=== PATIENT | female | born 1985 | race Caucasian/White ===

== ENCOUNTER 2016-09-15 18:26 | Emergency (ER) | payer OTHER ==
[2016-09-15 18:50] VITALS: BP 151/93
[2016-09-15] MEDS ORDERED: Metoclopramide IV* 5 MG/ML 2 ML VIAL IV ONE (19:22)
[2016-09-15] MEDS ORDERED: Ketorolac INJ* 30 MG/ML 1 ML VIAL IV ONE (19:22)
[2016-09-15] MEDS ORDERED: NS 0.9% 1000 ML* 2,000 ML IV ONE (19:22)
[2016-09-15] MEDS ORDERED: Penicillin VK TAB* 250 MG PO ONE (19:25)
--- NOTE | 2016-09-15 20:37 | ED ---
Complex/Multi-Sys Presentation - HPI Summary HPI Summary: Patient presents complaining of a lump under her right arm, right upper canine tooth pain and headache. She has had lumps under her arm in the past that have turned into infections, and she has "been septic 3 times". Her tooth has been hurting for weeks after placement of a temporary cap. She has been working with her dentist to have the tooth completely pulled and a bridge put in, but her insurance has not approved the procedure yet. Her headache is a typical headache for her that has not responded to tylenol, or rest. She is under the care of a neurologist in [place] and says "they have tried everything" but she thinks her tooth is making the headache not go away. She denies fever, chills, or drainage from the tooth. No vision changes, neck pain or stiffness. No redness, pain or drainage from the bump. - History Of Current Complaint Chief Complaint: EDRashSkinAbscess Time Seen by Provider: 09/15/16 18:54 Hx Obtained From: Patient Onset/Duration: Gradual Onset Severity Currently: Moderate Severity Initially: Moderate Character: Typical Headache - Allergies/Home Medications Allergies/Adverse Reactions: Allergies Allergy/AdvReac Type Severity Reaction Status Date / Time Ibuprofen Allergy Blisters Verified 09/15/16 18:45 Tramadol Allergy See Comment Verified 09/15/16 18:45 Trazodone Allergy See Comment Verified 09/15/16 18:45 Diphenhydramine AdvReac Agitation Verified 09/15/16 18:45 [From Benadryl] Lorazepam AdvReac Anxiety Verified 09/15/16 18:45 Meperidine [From Demerol HCl] AdvReac Nausea And Verified 09/15/16 18:45 Vomiting PHENERGEN AdvReac Agitation Uncoded 09/15/16 18:45 PMH/Surg Hx/FS Hx/Imm Hx Respiratory History: Reports: Hx Asthma GI History: Reports: Hx Ulcer Musculoskeletal History: Reports: Other Musculoskeletal History - 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, neck Neurological History: Reports: Hx Headaches, Hx Migraine - Surgical History Surgery Procedure, Year, and Place: c section august 2011, pt has had 3 reconstructive surgeries to rt arm/hand Infectious Disease History: No Infectious Disease History: Reports: Hx Shingles, History Other Infectious Disease - lyme disease Denies: Traveled Outside the [place] in Last 30 Days - Family History Known Family History: Positive: Hypertension - Social History Occupation: Employed Full-time Lives: With Family Alcohol Use: None Substance Use Type: Reports: None Substance Use Comment - Amount & Last Used: percocet Smoking Status (MU): Light Every Day Tobacco Smoker Type: Cigarettes Amount Used/How Often: 5-7 cigarettes/day Length of Time of Smoking/Using Tobacco: quit 2010 Cessation Counseling: Patient Advised to Stop Review of Systems Negative: Fever, Chills, Fatigue Negative: Blurred Vision, Diplopia Positive: Dental Pain. Negative: Sore Throat, Ear Ache Negative: Chest Pain Negative: Shortness Of Breath, Cough Negative: Vomiting, Diarrhea, Nausea Positive: no symptoms reported Negative: Myalgia Positive: Rash - right armpit. Negative: Bruising Positive: Headache. Negative: Weakness, Paresthesia, Numbness All Other Systems Reviewed And Are Negative: Yes Physical Exam - Summary Physical Exam Summary: Patient is seated comfortably in the exam chair in no acute distress. Triage Information Reviewed: Yes Vital Signs On Initial Exam: Initial Vitals Temp Pulse Resp BP Pulse Ox 98.9 F 73 16 151/93 100 09/15/16 18:45 09/15/16 18:45 09/15/16 18:45 09/15/16 18:45 09/15/16 18:45 Vital Signs Reviewed: Yes Appearance: Positive: Well-Appearing, No Pain Distress, Obese Skin: Positive: Warm, Skin Color Reflects Adequate Perfusion, Dry, Tender - 1 cm area of enduration without drainage, erythema or warmth, Soft Head/Face: Positive: Normal Head/Face Inspection Eyes: Positive: EOMI, ALTAGRACIA, Conjunctiva Clear ENT: Positive: Hearing grossly normal, Pharynx normal, TMs normal Dental: Positive: Percussion Tenderness @ - right upper canine. Negative: Abscess @ Neck: Positive: Supple, Nontender, No Lymphadenopathy Respiratory/Lung Sounds: Positive: Breath Sounds Present Cardiovascular: Positive: RRR Musculoskeletal: Negative: Edema Left, Edema Right Neurological: Positive: Sensory/Motor Intact, Alert, Oriented to Person Place, Time, CN Intact II-III, NV Bundle Intact Distally, Normal Gait Psychiatric: Positive: Affect/Mood Appropriate AVPU Assessment: Alert Diagnostics - Vital Signs Vital Signs Temp Pulse Resp BP Pulse Ox 09/15/16 18:45 98.9 F 73 16 151/93 100 - Laboratory Lab Statement: Any lab studies that have been ordered have been reviewed, and results considered in the medical decision making process. Re-Evaluation - Re-Evaluation First Eval Change: Improved - Headache has improved but her tooth still aches. Complex Multi-Symp Course/Dx - Diagnoses Differential Diagnoses/HQI/PQRI: Aspiration, Closed Cranial Trauma, Sepsis, Urinary Tract Infection Provider Diagnoses: Headache, Abscess, Dental implant pain Discharge - Discharge Plan Condition: Stable Disposition: HOME Prescriptions: HYDROcodone/ACETAMIN 5-325 MG* [[place] 5-325 TAB*] 1 tab PO QID #6 tab MDD 3 Penicillin VK TAB 500 MG(NF) [Penicillin VK 500 mg Tab(NF)] 500 mg PO QID #28 tab Patient Education Materials: Toothache (ED), Migraine Headache (ED) Referrals: Alma Flanagan PA [Primary Care Provider] - Additional Instructions: Please use the antibiotics provided to help with her your tooth pain. Use the pain medication as needed. Call your dentist tomorrow to figure out pain management and treatment options. Speak with your neurologist if your symptom persist. Apply warm compresses to your arm pit and follow-up with your primary care provider if your symptoms persist. Return to the emergency department if symptoms worsen.
[2016-09-15 20:51] LABS: Hematocrit 43 % (35-47); Hemoglobin 14.8 g/dl (12.0-16.0); Mean Corpuscular HGB Conc 34 g/dl (31-36); Mean Corpuscular Hemoglobin 30 pg (27-31); Mean Corpuscular Volume 88 fL (80-97); Mean Platelet Volume 8 um3 (7.4-10.4); Red Blood Count 4.95 10^6/ul (4.0-5.4); Red Cell Distribution Width 14 % (10.5-15); White Blood Count 6.8 10^3/ul (3.5-10.8)
== END 2016-09-15 21:20 | disposition home or self-care (01) ==
LOC: ED 18:26
DX: K04.7 Periapical abscess without sinus (principal); R51 Headache; M79.601 Pain in right arm; Z96.5 Presence of tooth-root and mandibular implants
CPT/HCPCS: 36415; 85025; 96374; 96375; 99283; A9270-GY; J1885; J2765

== ENCOUNTER 2016-11-09 17:52 | Emergency (ER) | payer OTHER ==
[2016-11-09 18:09] VITALS: BP 132/93
--- NOTE | 2016-11-09 18:23 | UC ---
[facility] Dental HPI - History of Current Complaint Chief Complaint: UCDentalProblem Stated Complaint: DENTAL Time Seen by Provider: 11/09/16 18:04 Hx Obtained From: Patient Hx Last Menstrual Period: 11/07/16 Onset/Duration: Sudden Onset - Had tooth extraction 11/06. Ongoing pain., Worse Since - onset. Severity: Severe Aggravating: Nothing Alleviating: Other (see comments) - pressing on the nose, Related History: Previous Dental Care on Same Tooth - Allergies/Home Medications Allergies/Adverse Reactions: Allergies Allergy/AdvReac Type Severity Reaction Status Date / Time Ibuprofen Allergy Blisters Verified 11/09/16 17:57 Tramadol Allergy See Comment Verified 11/09/16 17:57 Trazodone Allergy See Comment Verified 11/09/16 17:57 Diphenhydramine AdvReac Agitation Verified 11/09/16 17:57 [From Benadryl] Lorazepam AdvReac Anxiety Verified 11/09/16 17:57 Meperidine [From Demerol HCl] AdvReac Nausea And Verified 11/09/16 17:57 Vomiting PHENERGEN AdvReac Agitation Uncoded 11/09/16 17:57 PMH/Surg Hx/FS Hx/Imm Hx Cardiovascular History Of: Reports: Cardiac Disorders - palpiatations Respiratory History Of: Reports: Asthma GI/ History Of: Reports: Ulcer Neurological History Of: Reports: Migraine - Surgical History Surgical History: Yes Surgery Procedure, Year, and Place: c section august 2011, pt has had 3 reconstructive surgeries to rt arm/hand. Dental - Family History Known Family History: Positive: Cardiac Disease, Hypertension, Diabetes - Social History Occupation: Employed Full-time Lives: With Family - with 5 year old. Alcohol Use: None Substance Use Type: None Substance Use Comment - Amount & Last Used: percocet Smoking Status (MU): Light Every Day Tobacco Smoker Type: Cigarettes Amount Used/How Often: 5 cigarettes/day Length of Time of Smoking/Using Tobacco: quit 2010 Have You Smoked in the Last Year: Yes Household Exposure Type: Cigarettes Cessation Counseling: Patient Advised to Stop - Immunization History Most Recent Influenza Vaccination: NONE Most Recent Tetanus Shot: UTD Most Recent Pneumonia Vaccination: NONE Review of Systems ENT: Dental Pain - with recent removal #6 All Other Systems Reviewed And Are Negative: Yes Physical Exam Triage Information Reviewed: Yes Appearance: Well-Nourished, Ill-Appearing - mild, Pain Distress - mild Vital Signs: Initial Vital Signs Temp 99.8 F 11/09/16 17:59 Pulse 93 11/09/16 17:59 Resp 18 11/09/16 17:59 BP 132/93 11/09/16 17:59 Pulse Ox 100 11/09/16 17:59 Vital Signs Reviewed: Yes Eyes: Positive: Conjunctiva Clear ENT: Positive: Pharynx normal, TMs normal Dental: Positive: Cellulitis @ - #6 at the site of removal. Open wound. Neck: Positive: Tenderness @ - right SCM and right sided anterior lymph nodes Respiratory Exam: Normal Cardiovascular Exam: Normal Musculoskeletal Exam: Normal Neurological Exam: Normal Psychological Exam: Normal Skin Exam: Normal Dental Complaint Course/Dx - Differential Dx/Diagnosis Differential Diagnosis/Dx: Dental Abscess, Peritonsillar Abcess, Post Extraction Pain Provider Diagnoses: Dental cellulitis. Post extraction pain. Discharge - Discharge Plan Condition: Stable Disposition: HOME Prescriptions: Amoxicillin/Clavulanate TAB* [Augmentin TAB 875*] 875 mg PO BID #20 tab HYDROcodone/ACETAMIN 5-325 MG* [[place] 5-325 TAB*] 1 tab PO Q6H PRN #15 tab MDD 4 PRN Reason: Pain (Dental) Patient Education Materials: Dental Abscess (ED), Toothache (ED), Amoxicillin/ Clavulanate Potassium (By mouth), Hydrocodone/Acetaminophen (By mouth) Referrals: Alma Flanagan PA [Primary Care Provider] - Additional Instructions: Follow up with the dentist this week Images Dental: 1 - open wound with surrounding redness, tenderness and swelling
[2016-11-09] MEDS ORDERED: Amoxicillin/Clavulanate TAB* 875 MG PO ONE (18:26)
[2016-11-09] MEDS ORDERED: HYDROcodone/ACETAMIN 5-325 MG* 1 TAB PO ONE (18:26)
== END 2016-11-09 18:45 | disposition home or self-care (01) ==
LOC: UCCORT 17:52
DX: K12.2 Cellulitis and abscess of mouth (principal); K08.409 Partial loss of teeth, unspecified cause, unspecified class; R00.2 Palpitations; J45.909 Unspecified asthma, uncomplicated; G43.909 Migraine, unspecified, not intractable, without status migrainosus; Z88.6 Allergy status to analgesic agent; Z88.5 Allergy status to narcotic agent; Z88.8 Allergy status to other drugs, medicaments and biological substances; F17.210 Nicotine dependence, cigarettes, uncomplicated
CPT/HCPCS: 99212; A9270-GY; G0463

== ENCOUNTER 2017-02-15 19:11 | Emergency (ER) | payer OTHER ==
[2017-02-15] MEDS ORDERED: NS 0.9% 1000 ML* 2,000 ML IV ONE (19:46)
[2017-02-15] MEDS ORDERED: Ondansetron INJ* 2 MG/ML VIAL IV ONE (19:46)
[2017-02-15 19:49] VITALS: BP 136/92
--- NOTE | 2017-02-15 20:28 | RAD ---
INDICATION: Dysfunctional uterine bleeding COMPARISON: Pelvic sonogram June 01, 2015 TECHNIQUE: Longitudinal and transverse transabdominal scans of the pelvis were obtained. FINDINGS: Uterus: The uterus is normal in size. There are no focal masses. The uterus measures 8.4 x 3.4 x 4.8 cm. Endometrial thickness: The endometrial thickness is measured at 0.6 cm. . Free fluid: There is no significant free fluid . Ovaries: The ovaries are normal in size. The right ovary measures 2.8 x 1.9 x 2.5 cm. The left ovary measures 3.1 x 1.9 x 2.5 cm. There are small bilateral follicles.. Doppler interrogation demonstrates flow to each ovary. Other: None IMPRESSION: NORMAL STUDY.
[2017-02-15 20:54] LABS: Hematocrit 43 % (35-47); Hemoglobin 14.7 g/dl (12.0-16.0); Mean Corpuscular HGB Conc 34 g/dl (31-36); Mean Corpuscular Hemoglobin 30 pg (27-31); Mean Corpuscular Volume 87 fL (80-97); Mean Platelet Volume 8 um3 (7.4-10.4); Red Blood Count 4.91 10^6/ul (4.0-5.4); Red Cell Distribution Width 14 % (10.5-15); White Blood Count 7.2 10^3/ul (3.5-10.8)
[2017-02-15 21:14] LABS: ALT 17 U/L (7-52); AST 12 U/L (13-39); Albumin 4.4 g/dL (3.2-5.2); Alkaline Phosphatase 53 U/L (34-104); Anion Gap 7 mmol/L (2-11); BUN/Creatinine Ratio 17.5 (8-20); Blood Urea Nitrogen 10 mg/dL (6-24); CO2 Carbon Dioxide 23 mmol/L (22-32); Calcium 9.4 mg/dL (8.6-10.3); Chloride 105 mmol/L (101-111); EGFR African American 157.1 (>60); EGFR Non-African American 122.2 (>60); Globulin 2.8 g/dL (2-4); Glucose 85 mg/dL (70-100); Potassium 3.4 mmol/L (3.5-5.0); Sodium 135 mmol/L (133-145); Total Protein 7.2 g/dL (6.4-8.9)
[2017-02-15] MEDS ORDERED: Meclizine TAB* 12.5 MG PO ONE (21:56)
--- NOTE | 2017-02-16 05:17 | ED ---
Avni Logan Rebecca, scribed for Dyllan Bernstein MD on 02/15/17 at 1957 . GI/ HPI - HPI Summary HPI Summary: Pt is a 31 y/o F who presents to ED c/o heavy vaginal bleeding. Pt reports that her period began on February 09 and that typically it is light and lasts 3-4 days. However, it has continued since onset and this morning the blood was darker than usual and contained multiple clots "larger than a half dollar." Pt uses the Diva cup and has filled it 3-4 times today. Additionally c/o dizziness , N/V, R-sided abd pain and R lumbar back pain. Associated pain is currently moderate, ranked 6/10. Denies dysuria. No prior similar episodes. Does not take ASA and is not on oral contraceptives. No chance of , per pt. SR. MANAGER is Dr. Mcdonald with whom she has an appointment in 9 days. PMHx R ovarian cysts , uterine fibroids, migraines. - History of Current Complaint Chief Complaint: EDGeneral Time Seen by Provider: 02/15/17 19:28 Stated Complaint: GENERAL ILLNESS/MIGRAINE/VAG BLEED Hx Obtained From: Patient Hx Last Menstrual Period: 11/07/16 Onset/Duration: Still Present Current Severity: Moderate - 6/10 Vaginal Bleeding Description: Dark Red, Clots Pain Intensity: 6 Location of Pain: RLQ - R-sided abd pain Associated Signs and Symptoms: Positive: Nausea, Vomiting Additional Signs & Symptoms: Positive: Vaginal Bleeding Aggravating Factor(s): Nothing Alleviating Factor(s): Nothing - Allergy/Home Medications Allergies/Adverse Reactions: Allergies Allergy/AdvReac Type Severity Reaction Status Date / Time Ibuprofen Allergy Blisters Verified 11/09/16 17:57 Tramadol Allergy See Comment Verified 11/09/16 17:57 Trazodone Allergy See Comment Verified 11/09/16 17:57 Diphenhydramine AdvReac Agitation Verified 11/09/16 17:57 [From Benadryl] Lorazepam AdvReac Anxiety Verified 11/09/16 17:57 Meperidine [From Demerol HCl] AdvReac Nausea And Verified 11/09/16 17:57 Vomiting PHENERGEN AdvReac Agitation Uncoded 11/09/16 17:57 PMH/Surg Hx/FS Hx/Imm Hx Respiratory History: Reports: Hx Asthma GI History: Reports: Hx Ulcer History: Reports: Other Problems/Disorders - Ovarian cysts and uterine fibroids Musculoskeletal History: Reports: Other Musculoskeletal History - 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 Dental Infectious Disease History: Reports: Hx Shingles, History Other Infectious Disease - lyme disease Denies: Traveled Outside the [place] in Last 30 Days - Family History Known Family History: Positive: Cardiac Disease, Hypertension, Diabetes - Social History Alcohol Use: None Substance Use Type: Reports: None Substance Use Comment - Amount & Last Used: percocet Smoking Status (MU): Light Every Day Tobacco Smoker Type: Cigarettes Amount Used/How Often: 5 cigarettes/day Length of Time of Smoking/Using Tobacco: quit 2010 Have You Smoked in the Last Year: Yes Review of Systems Positive: Abdominal Pain - R-sided abd pain, Vomiting, Nausea Positive: other - Heavy vaginal bleeding. Negative: dysuria Positive: Arthralgia - R Lumbar back pain Neurological: Other - Dizziness All Other Systems Reviewed And Are Negative: Yes Physical Exam - Summary Physical Exam Summary: The patient is well-nourished in no acute distress and in no acute pain. The skin is warm and dry and skin color reflects adequate perfusion. HEENT: The head is normocephalic and atraumatic. The pupils are equal and reactive. The conjunctivae are clear and without drainage. Nares are patent and without drainage. Mouth reveals moist mucous membranes and the throat is without erythema and exudate. The external ears are intact. The ear canals are patent and without drainage. The tympanic membranes are intact. Neck is supple with full range of motion and non-tender. There are no carotid bruits. There is no neck vein distension. Respiratory: Chest is non-tender. Lungs are clear to auscultation and breath sounds are symmetrical and equal. Cardiovascular: Hear is regular rate and rhythm. There is no murmur or rub auscultated. There is no peripheral edema and pulses are symmetrical and equal. Abdomen: The abdomen is obese and soft with questionable R ovary tenderness. There are normal bowel sounds heard in all four quadrants and there is no organomegaly palpated. Musculoskeletal: No CVA tenderness bilaterally. Extremities are non-tender with full range of motion. There is good capillary refill. There is no peripheral edema or calf tenderness elicited. Neurological: Patient is alert and oriented to person, place and time. The patient has symmetrical motor strength in all four extremities. Cranial nerves are grossly intact. Deep tendon reflexes are symmetrical and equal in all four extremities. Psychiatric: The patient has an appropriate affect and does not exhibit any anxiety or depression. Triage Information Reviewed: Yes Vital Signs On Initial Exam: Initial Vitals Temp Pulse Resp BP Pulse Ox 98.9 F 78 20 131/92 99 02/15/17 19:18 02/15/17 19:18 02/15/17 19:18 02/15/17 19:18 02/15/17 19:18 Vital Signs Reviewed: Yes Diagnostics - Vital Signs Vital Signs Temp Pulse Resp BP Pulse Ox 02/15/17 19:18 98.9 F 78 20 131/92 99 - Laboratory Lab Results: Lab Results 02/15/17 02/15/17 02/15/17 Range/Units 20:35 20:35 20:35 WBC 7.2 (3.5-10.8) 10^3/ul RBC 4.91 (4.0-5.4) 10^6/ul Hgb 14.7 (12.0-16.0) g/dl Hct 43 (35-47) % MCV 87 (80-97) fL MCH 30 (27-31) pg MCHC 34 (31-36) g/dl RDW 14 (10.5-15) % Plt Count 251 (150-450) 10^3/ul MPV 8 (7.4-10.4) um3 Neut % (Auto) 48.2 (38-83) % Lymph % (Auto) 45.1 (25-47) % Sampson % (Auto) 4.0 (1-9) % Eos % (Auto) 2.3 (0-6) % Baso % (Auto) 0.4 (0-2) % Absolute Neuts (auto) 3.5 (1.5-7.7) 10^3/ul Absolute Lymphs (auto) 3.3 (1.0-4.8) 10^3/ul Absolute Monos (auto) 0.3 (0-0.8) 10^3/ul Absolute Eos (auto) 0.2 (0-0.6) 10^3/ul Absolute Basos (auto) 0 (0-0.2) 10^3/ul Absolute Nucleated RBC 0 10^3/ul Nucleated RBC % 0 INR (Anticoag Therapy) 1.03 (0.89-1.11) APTT 30.3 (26.0-36.3) seconds Sodium 135 (133-145) mmol/L Potassium 3.4 L (3.5-5.0) mmol/L Chloride 105 (101-111) mmol/L Carbon Dioxide 23 (22-32) mmol/L Anion Gap 7 (2-11) mmol/L BUN 10 (6-24) mg/dL Creatinine 0.57 (0.51-0.95) mg/dL Est GFR ( Amer) 157.1 (>60) Est GFR (Non-Af Amer) 122.2 (>60) BUN/Creatinine Ratio 17.5 (8-20) Glucose 85 (70-100) mg/dL Lactic Acid (0.5-2.0) mmol/L Calcium 9.4 (8.6-10.3) mg/dL Total Bilirubin 0.50 (0.2-1.0) mg/dL AST 12 L (13-39) U/L ALT 17 (7-52) U/L Alkaline Phosphatase 53 (34-104) U/L Total Protein 7.2 (6.4-8.9) g/dL Albumin 4.4 (3.2-5.2) g/dL Globulin 2.8 (2-4) g/dL Albumin/Globulin Ratio 1.6 (1-3) Beta HCG, Quant < 0.60 mIU/mL 02/15/17 Range/Units 20:35 WBC (3.5-10.8) 10^3/ul RBC (4.0-5.4) 10^6/ul Hgb (12.0-16.0) g/dl Hct (35-47) % MCV (80-97) fL MCH (27-31) pg MCHC (31-36) g/dl RDW (10.5-15) % Plt Count (150-450) 10^3/ul MPV (7.4-10.4) um3 Neut % (Auto) (38-83) % Lymph % (Auto) (25-47) % Sampson % (Auto) (1-9) % Eos % (Auto) (0-6) % Baso % (Auto) (0-2) % Absolute Neuts (auto) (1.5-7.7) 10^3/ul Absolute Lymphs (auto) (1.0-4.8) 10^3/ul Absolute Monos (auto) (0-0.8) 10^3/ul Absolute Eos (auto) (0-0.6) 10^3/ul Absolute Basos (auto) (0-0.2) 10^3/ul Absolute Nucleated RBC 10^3/ul Nucleated RBC % INR (Anticoag Therapy) (0.89-1.11) APTT (26.0-36.3) seconds Sodium (133-145) mmol/L Potassium (3.5-5.0) mmol/L Chloride (101-111) mmol/L Carbon Dioxide (22-32) mmol/L Anion Gap (2-11) mmol/L BUN (6-24) mg/dL Creatinine (0.51-0.95) mg/dL Est GFR ( Amer) (>60) Est GFR (Non-Af Amer) (>60) BUN/Creatinine Ratio (8-20) Glucose (70-100) mg/dL Lactic Acid 0.6 (0.5-2.0) mmol/L Calcium (8.6-10.3) mg/dL Total Bilirubin (0.2-1.0) mg/dL AST (13-39) U/L ALT (7-52) U/L Alkaline Phosphatase (34-104) U/L Total Protein (6.4-8.9) g/dL Albumin (3.2-5.2) g/dL Globulin (2-4) g/dL Albumin/Globulin Ratio (1-3) Beta HCG, Quant mIU/mL Result Diagrams: 02/15/17 20:35 02/15/17 20:35 Lab Statement: Any lab studies that have been ordered have been reviewed, and results considered in the medical decision making process. - Ultrasound No standard instances Ultrasound Interpretation: No Acute Changes - PELVIS US: NORMAL STUDY. Ultrasound Interpretation Completed By: Radiologist Re-Evaluation - Re-Evaluation First Eval Re-Evaluation Time: 21:54 Change: Unchanged Comment: Reviewed labs with the pt. She continues to be dizzy and when asked to described sx, it sounds like vertigo. She also has some ataxia. Will give Meclizine to see if sx improve. Second Eval Re-Evaluation Time: 22:36 Change: Unchanged Comment: Pt is unhappy with her care. She felt that we were not compassionate enough with her and did not spend enough time with her. GIGU Course/Dx - Course Assessment/Plan: Pt is a 31 y/o F who presents to ED c/o heavy vaginal bleeding. Pt reports that her period began on February 09 and that typically it is light and lasts 3-4 days. However, it has continued since onset and this morning the blood was darker than usual and contained multiple clots "larger than a half dollar." Pt uses the Diva cup and has filled it 3-4 times today. Additionally c/o dizziness, N/V, R-sided abd pain and R lumbar back pain. Associated pain is currently moderate, ranked 6/10. Denies dysuria. No prior similar episodes. Does not take ASA and is not on oral contraceptives. No chance of , per pt. SR. MANAGER is Dr. Mcdonald with whom she has an appointment in 9 days. PMHx R ovarian cysts, uterine fibroids, migraines. Pelvic US reveals no acute findings. In the ED course, pt was administered Zofran, Meclizine and fluids. She will be D/C to home with Dx of dizziness and nausea with a follow up with her PCP. She understands and agrees. - Diagnoses Differential Diagnoses - Female: Other - vaginal bleding, dizziness Provider Diagnoses: Dizziness, Nausea Discharge - Discharge Plan Condition: Stable Disposition: HOME Patient Education Materials: Dizziness (ED) Referrals: Alma Flanagan PA [Primary Care Provider] - 3 Days The documentation as recorded by the Avni woods Rebecca accurately reflects the service I personally performed and the decisions made by me, Dyllan Bernstein MD.
== END 2017-02-15 22:53 | disposition home or self-care (01) ==
LOC: ED 19:11
DX: R42 Dizziness and giddiness (principal); R11.2 Nausea with vomiting, unspecified; M54.5 Low back pain; N93.9 Abnormal uterine and vaginal bleeding, unspecified; Z32.02 Encounter for pregnancy test, result negative; J45.909 Unspecified asthma, uncomplicated; G43.909 Migraine, unspecified, not intractable, without status migrainosus; Z88.6 Allergy status to analgesic agent; Z88.5 Allergy status to narcotic agent
CPT/HCPCS: 36415; 76856; 80053; 83605; 84702; 85025; 85610; 85730; 96361; 96374; 99282; A9270-GY; J2405

== ENCOUNTER 2017-02-23 23:59 | Emergency (ER) | payer OTHER ==
[2017-02-24] MEDS ORDERED: NS 0.9% 1000 ML* 2,000 ML IV ONE (00:14)
[2017-02-24] MEDS ORDERED: Ondansetron INJ* 2 MG/ML VIAL IV ONE ×2 (00:14→01:14)
[2017-02-24] MEDS ORDERED: Morphine INJ* 4 MG/ML 1 ML SYRINGE IV ONE ×2 (00:14→01:12)
[2017-02-24 00:45] LABS: Hematocrit 43 % (35-47); Hemoglobin 14.9 g/dl (12.0-16.0); Mean Corpuscular HGB Conc 35 g/dl (31-36); Mean Corpuscular Hemoglobin 31 pg (27-31); Mean Corpuscular Volume 87 fL (80-97); Mean Platelet Volume 8 um3 (7.4-10.4); Red Blood Count 4.87 10^6/ul (4.0-5.4); Red Cell Distribution Width 14 % (10.5-15); White Blood Count 10.6 10^3/ul (3.5-10.8)
[2017-02-24 00:52] LABS: Urine Bacteria 2+ (Absent); Urine Bilirubin Negative (Negative); Urine Glucose Negative (Negative); Urine Nitrite Negative (Negative)
[2017-02-24 01:05] LABS: ALT 19 U/L (7-52); AST 16 U/L (13-39); Albumin 4.5 g/dL (3.2-5.2); Alkaline Phosphatase 51 U/L (34-104); Anion Gap 4 mmol/L (2-11); BUN/Creatinine Ratio 18.9 (8-20); Blood Urea Nitrogen 10 mg/dL (6-24); CO2 Carbon Dioxide 28 mmol/L (22-32); Calcium 9.6 mg/dL (8.6-10.3); Chloride 102 mmol/L (101-111); EGFR African American 170.9 (>60); EGFR Non-African American 132.9 (>60); Globulin 2.8 g/dL (2-4); Glucose 114 mg/dL (70-100); Lipase 17 U/L (11.0-82.0); Potassium 3.5 mmol/L (3.5-5.0); Sodium 134 mmol/L (133-145); Total Protein 7.3 g/dL (6.4-8.9)
[2017-02-24] MEDS ORDERED: Levofloxacin TAB* 500 MG PO ONE (02:55)
[2017-02-24 03:16] VITALS: BP 122/74
--- NOTE | 2017-02-24 06:11 | ED ---
Avni Logan Rebecca, scribed for Donta Kramer on 02/24/17 at 0019 . Back Pain - HPI Summary HPI Summary: Pt is a 31 y/o F BIBA who presents to ED c/o L flank pain. Pain began earlier today while at work, though it worsened tonight. Pain is currently severe, ranked 9/10. Sx aggravated and alleviated by nothing. Additionally c/o N/V. Denies hematuria and fever. No PMHx kidney stones. PMHx septicemia from 2 ureter tubes in the R kidney. No prior issues with the L kidney. - History of Current Complaint Chief Complaint: EDFlankPain Stated Complaint: BACK PAIN Time Seen by Provider: 02/24/17 00:08 Hx Obtained From: Patient Hx Last Menstrual Period: 11/07/16 Onset/Duration: Still Present, Worse Since - Tonight Back Pain Location: Is Discrete @ - L flank Severity Currently: Severe Pain Intensity: 9 Pain Scale Used: 0-10 Numeric Aggravating Symptom(s): Nothing Alleviating Symptom(s): Nothing Associated Signs And Symptoms: Positive: Other - N/V. Negative: Fever - Allergies/Home Medications Allergies/Adverse Reactions: Allergies Allergy/AdvReac Type Severity Reaction Status Date / Time Ibuprofen Allergy Blisters Verified 02/24/17 00:06 Tramadol Allergy See Comment Verified 02/24/17 00:06 Trazodone Allergy See Comment Verified 02/24/17 00:06 Diphenhydramine AdvReac Agitation Verified 02/24/17 00:06 [From Benadryl] Lorazepam AdvReac Anxiety Verified 02/24/17 00:06 Meperidine [From Demerol HCl] AdvReac Nausea And Verified 02/24/17 00:06 Vomiting PHENERGEN AdvReac Agitation Uncoded 02/24/17 00:06 PMH/Surg Hx/FS Hx/Imm Hx Respiratory History: Reports: Hx Asthma GI History: Reports: Hx Ulcer History: Reports: Other Problems/Disorders - Ovarian cysts and uterine fibroids Musculoskeletal History: Reports: Other Musculoskeletal History - 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 Dental Infectious Disease History: No Infectious Disease History: Reports: Hx Shingles, History Other Infectious Disease - lyme disease Denies: Traveled Outside the [place] in Last 30 Days - Family History Known Family History: Positive: Cardiac Disease, Hypertension, Diabetes - Social History Alcohol Use: None Substance Use Type: Reports: None Substance Use Comment - Amount & Last Used: percocet Smoking Status (MU): Light Every Day Tobacco Smoker Type: Cigarettes Amount Used/How Often: 5 cigarettes/day Length of Time of Smoking/Using Tobacco: quit 2010 Have You Smoked in the Last Year: Yes Review of Systems Negative: Fever Positive: Vomiting, Nausea Negative: hematuria Positive: Other - L flank pain All Other Systems Reviewed And Are Negative: Yes Physical Exam - Summary Physical Exam Summary: Appearance: Well appearing, no pain distress Skin: warm, dry, reflects adequate perfusion Head/face: normal Eyes: EOMI, ALTAGRACIA ENT: normal Neck: supple, nontender Respiratory: CTA, breath sounds present Cardiovascular: RRR, pulses symmetrical Abdomen: nontender, soft Bowel: present Musculoskeletal: L flank tenderness, strength/ROM intact Neuro: normal, sensory motor intact, A&Ox3 Triage Information Reviewed: Yes Vital Signs On Initial Exam: Initial Vitals Temp Pulse Resp BP Pulse Ox 98.2 F 85 20 127/97 98 02/24/17 00:04 02/24/17 00:04 02/24/17 00:04 02/24/17 00:04 02/24/17 00:04 Vital Signs Reviewed: Yes - [place] Coma Scale Coma Scale Total: 15 Diagnostics - Vital Signs Vital Signs Temp Pulse Resp BP Pulse Ox 02/24/17 00:09 98.2 F 85 20 127/97 98 02/24/17 00:04 98.2 F 85 20 127/97 98 - Laboratory Result Diagrams: 02/24/17 00:30 02/24/17 00:30 Lab Statement: Any lab studies that have been ordered have been reviewed, and results considered in the medical decision making process. - CT CT Abd/Pel CT Interpretation: Positive (See Comments) - Questionable minimal left hydronephrosis may be secondary to a recently passed stone. Punctate intraparenchymal left renal stone. No other localizing findings for acute pathology. ED physician reviewed this radiology report and agrees. CT Interpretation Completed By: Radiologist Back Pain Course/Dx - Course Assessment/Plan: Pt is a 31 y/o F BIBA who presents to ED c/o L flank pain. Pain began earlier today while at work, though it worsened tonight. Pain is currently severe, ranked 9/10. Sx aggravated and alleviated by nothing. Additionally c/o N/V. Denies hematuria and fever. No PMHx kidney stones. PMHx septicemia from 2 ureter tubes in the R kidney. No prior issues with the L kidney. CT Abd/Pel reveals "Questionable minimal left hydronephrosis may be secondary to a recently passed stone. Punctate intraparenchymal left renal stone. No other localizing findings for acute pathology." In the ED course, pt was administered Levaquin, morphine and zofran. Pt will be D/C to home with Dx of UTI and flank pain with Rx for motrin and levaquin and a follow up with her PCP. She understands and agrees. Elevated BP noted and advised to f/u with PCP. - Diagnoses Provider Diagnoses: UTI (urinary tract infection), Flank pain Discharge - Discharge Plan Condition: Stable Disposition: HOME Prescriptions: Levofloxacin TAB* [Levaquin TAB*] 500 mg PO DAILY #10 tab Ondansetron ODT TAB* [Zofran 4 MG Odt TAB*] 4 mg PO Q8H PRN #20 tab.odt MDD 3 PRN Reason: Vomiting Patient Education Materials: Urinary Tract Infection in Women (ED), Flank Pain (ED) Referrals: Alma Flanagan PA [Primary Care Provider] - 3 Days The documentation as recorded by the Avni woods Rebecca accurately reflects the service I personally performed and the decisions made by , Donta Kramer.
--- NOTE | 2017-02-24 08:08 | RAD ---
CLINICAL HISTORY: Left flank pain COMPARISON: December 28, 2012 TECHNIQUE: Multiple contiguous axial CT scans were obtained of the abdomen and pelvis, without intravenous contrast enhancement. Coronal and sagittal multiplanar reformations are submitted for review. Oral contrast was not administered. FINDINGS: LUNG BASES: The lung bases are clear. LIVER: The liver is normal in shape, size, contour, and attenuation. BILE DUCTS: There is no intrahepatic or extrahepatic biliary dilatation. GALLBLADDER: The gallbladder is normal, without pericholecystic inflammatory change. PANCREAS: The pancreas is normal, without mass or ductal dilatation. SPLEEN: Normal in size and appearance. UPPER GI TRACT: Evaluation of the gastrointestinal tract is limited by incomplete gastric distention. The upper GI tract is unremarkable. SMALL BOWEL AND MESENTERY: The small bowel is normal in contour, course, and caliber. There is no obstruction or dilatation. COLON: The colon is normal in contour, course, caliber. There is no pericolonic inflammatory change. There is a tubular, vermiform, hollow viscus that is blind ending, and originates from the cecum, consistent with a normal appendix. There is no periappendiceal inflammatory change. This is best seen on axial image 77 through 109 ADRENALS: Normal bilaterally. KIDNEYS: There is a punctate, 0.1 cm, left renal calyceal stone. There is mild fullness of the left renal pelvis and ureter. There is no stephania hydronephrosis. BLADDER: The bladder is smooth in contour. PELVIC ORGANS: The uterus and adnexa are grossly normal for technique. AORTA: The aorta is normal. IVC: Unremarkable LYMPH NODES: There is no lymphadenopathy by size criteria. ABDOMINAL WALL: There is no evidence for abdominal wall hernia. BONES AND SOFT TISSUES: Unremarkable OTHER: None IMPRESSION: PUNCTATE LEFT RENAL CALYCEAL STONE. THERE IS MILD FULLNESS OF THE LEFT RENAL PELVIS AND URETER WITHOUT STEPHANIA HYDRONEPHROSIS.
== END 2017-02-24 03:15 | disposition home or self-care (01) ==
LOC: ED 23:59
DX: N39.0 Urinary tract infection, site not specified (principal); R10.84 Generalized abdominal pain; R11.2 Nausea with vomiting, unspecified; F17.210 Nicotine dependence, cigarettes, uncomplicated
CPT/HCPCS: 36415; 74176; 80053; 81003; 81015; 83690; 84702; 85025; 85610; 85730; 87077; 87086; 87186; 96374; 96375; 99283; J2270; J2405

== ENCOUNTER 2017-12-21 16:25 | Emergency (ER) | payer OTHER ==
[2017-12-21 17:45] VITALS: BP 135/96
--- NOTE | 2017-12-21 20:12 | UC ---
Nel Logan Elizabeth, scribed for Sukumar Simeon MD on 12/21/17 at 1807 . Skin Complaint HPI - HPI Summary HPI Summary: This patient is a 32 year old F presenting to [facility] with a chief complaint of rash/lesion to the face and chest to the face since a 2 days ago. The patient says that she thinks she has another staph infection. The patient rates the pain 7/10 in severity. Symptoms aggravated by nothing. Symptoms alleviated by nothing. Patient reports swelling to her face, pain in her kidneys, pus-like discharge from the lesion on her face, and aching in her neck and jaw. The patient notes that she has a dislocated jaw and is planning to have surgery to correct it. The patient also reports that she has been hot-packing the lesion on her face so that it does not spread. Patient denies dental pain. The patient has a hx of MRSA and neurological problems. - History of Current Complaint Chief Complaint: UCSkin Time Seen by Provider: 12/21/17 17:52 Stated Complaint: RASH Hx Obtained From: Patient Hx Last Menstrual Period: now Onset/Duration: Sudden Onset, Lasting Days - 2 days, Still Present Skin Exposure Onset/Duration: Days Ago - 2 days Timing: Constant Onset Severity: Moderate Current Severity: Moderate Pain Intensity: 7 Pain Scale Used: 0-10 Numeric Location: Face, Other - chest Character: Swelling, Redness, Raised, Painful Aggravating Factor(s): Nothing Alleviating Factor(s): Nothing Associated Signs & Symptoms: Positive: Drainage - from lesion on face Related History: Other: - hx of staph infections and MRSA - Allergy/Home Medications Allergies/Adverse Reactions: Allergies Allergy/AdvReac Type Severity Reaction Status Date / Time diphenhydramine Allergy Agitation Verified 12/21/17 17:45 [From Benadryl] lorazepam Allergy Anxiety Verified 12/21/17 17:45 meperidine [From Demerol] Allergy Nausea And Verified 12/21/17 17:45 Vomiting NSAIDS (Non-Steroidal Allergy Hives Verified 12/21/17 17:46 Anti-Inflamma trazodone Allergy See Comment Verified 12/21/17 17:45 PHENERGEN AdvReac Agitation Uncoded 12/21/17 17:45 Review of Systems Constitutional: Negative - negative fever Skin: Rash - lesions on face and chest ENT: Negative - negative epistaxis Musculoskeletal: Arthralgia - jaw pain, neck pain, Edema - swelling in face All Other Systems Reviewed And Are Negative: Yes PMH/Surg Hx/FS Hx/Imm Hx - Additional Past Medical History Additional PMH: hx of staph infections, MRSA, dislocated jaw GI/ History: Renal Disease - Surgical History Surgical History: Yes Surgery Procedure, Year, and Place: august 2011, pt has had 3 reconstructive surgeries to rt arm/hand. Dental - Family History Known Family History: Positive: Cardiac Disease, Hypertension, Diabetes - Social History Alcohol Use: None Substance Use Type: None Substance Use Comment - Amount & Last Used: percocet Smoking Status (MU): Light Every Day Tobacco Smoker Type: Cigarettes Amount Used/How Often: 5 cigarettes/day Length of Time of Smoking/Using Tobacco: quit 2010 Have You Smoked in the Last Year: Yes Household Exposure Type: Cigarettes - Immunization History Most Recent Influenza Vaccination: NONE Most Recent Tetanus Shot: UTD Most Recent Pneumonia Vaccination: NONE Physical Exam - Summary Physical Exam Summary: General: well-appearing, no pain distress Skin: warm, color reflects adequate perfusion, dry, swelling 1.5 cm diameter right cheek just above the jaw, tender no the touch, no active drainage at this time, 2 0.5 cm diameter raised areas on the chest that have the appearance of folliculitis Head: normal Eyes: EOMI, ALTAGRACIA ENT: normal Neck: supple, nontender Respiratory: CTA, breath sounds present Cardiovascular: RRR Abdomen: soft, nontender Bowel: present Musculoskeletal: normal, strength/ROM intact Neurological: sensory/motor intact, A&O x3 Psychological: affect/mood appropriate Triage Information Reviewed: Yes Vital Signs: Initial Vital Signs Temp 98.5 F 12/21/17 17:42 Pulse 102 12/21/17 17:42 Resp 12 12/21/17 17:42 BP 135/96 12/21/17 17:42 Pulse Ox 100 12/21/17 17:42 Vital Signs Reviewed: Yes Course/Dx - Course Course Of Treatment: THE SWOLLEN AREA OF THE RIGHT FACE ABSCESS WAS NOT LARGE ENOUGH TO I & D. RX BACTRIM; RETURN IF WORSE. F/U PMD. - Diagnoses Provider Diagnoses: ABSCESS RIGHT FACE Discharge - Sign-Out/Discharge Documenting (check all that apply): Discharge/Admit/Transfer - Discharge Plan Condition: Stable Disposition: HOME Discharge Disposition Comment: discharge home Prescriptions: Mupirocin 22 gm TP BID #22 gm Sulfamethox/Trimethoprim DS* [Bactrim DS 800/160 TAB*] 1 tab PO BID #28 tab Patient Education Materials: Abscess (ED) Referrals: Alma Flanagan PA [Primary Care Provider] - Additional Instructions: FOLLOW UP WITH YOUR DOCTOR. GET RECHECKED FOR ANY WORSENING OF YOUR CONDITION; FEVER, SPREAD OF INFECTION OR QUESTIONS OR CONCERNS. - Billing Disposition and Condition Condition: STABLE Disposition: Home The documentation as recorded by the Nel woods Elizabeth accurately reflects the service I personally performed and the decisions made by me, Sukumar Simeon MD.
== END 2017-12-21 18:14 | disposition home or self-care (01) ==
LOC: UCEAST 16:25
DX: L02.01 Cutaneous abscess of face (principal); Z86.14 Personal history of Methicillin resistant Staphylococcus aureus infection; N28.9 Disorder of kidney and ureter, unspecified; Z88.6 Allergy status to analgesic agent; Z88.5 Allergy status to narcotic agent; Z88.8 Allergy status to other drugs, medicaments and biological substances; Z82.49 Family history of ischemic heart disease and other diseases of the circulatory system; Z83.3 Family history of diabetes mellitus; F17.210 Nicotine dependence, cigarettes, uncomplicated
CPT/HCPCS: 99212; G0463

== ENCOUNTER 2019-09-01 11:40 | Day surgery (SDC) | payer OTHER ==
[~2019-09-01 11:40] MED LIST: Buffered Lidocaine 1% SYRIN* 1 ML/SYRINGE INTRADERM ONE; Lactated Ringers 1000 ML Bag* 1,000 ML IV SCH
[2019-09-01] MEDS ORDERED: ceFAZolin 2 GM in NS PREMIX(*) 2 GM/100 ML BAG IVPB ONE (11:54)
[2019-09-01] MEDS ORDERED: Midazolam* 1 MG/ML 2 ML VIAL (2 MG) ONE (12:45)
[2019-09-01] MEDS ORDERED: Propofol* 500 MG/50 ML BTL ONE (13:13)
[2019-09-01] MEDS ORDERED: Rocuronium* 10 MG/ML VIAL ONE (13:14)
[2019-09-01] MEDS ORDERED: fentaNYL* 50 MCG/ML 2 ML VIAL (100 MCG VIAL) ONE (13:14)
[2019-09-01] MEDS ORDERED: Lidocaine 2% PF * 5 ML VIAL ONE (13:16)
[2019-09-01] MEDS ORDERED: Bupivacaine 0.25% SDV* 30 ML ONE (13:18)
[2019-09-01] MEDS ORDERED: Betamethasone INJ* 6 MG/ML 5 ML VIAL (30 MG) ONE (13:25)
[2019-09-01] MEDS ORDERED: Lidocaine 1% MPF ** 5 ML VIAL ONE (13:25)
[2019-09-01] MEDS ORDERED: Metoclopramide IV* 5 MG/ML 2 ML VIAL ONE (13:51)
[2019-09-01] MEDS ORDERED: Ondansetron INJ* 2 MG/ML VIAL ONE (13:51)
[2019-09-01] MEDS ORDERED: Dexamethasone IV* 4 MG/ML 1 ML (4 MG) ONE (13:51)
[2019-09-01] MEDS ORDERED: Ketorolac INJ* 30 MG/ML 1 ML VIAL ONE (13:51)
[2019-09-01] MEDS ORDERED: oxyCODONE TAB* 5 MG TAB PO PRN (14:24)
[2019-09-01] MEDS ORDERED: DiMENhydriNATE IV* 50 MG/ML VIAL IV PUSH PRN (14:24)
[2019-09-01] MEDS ORDERED: Naloxone* 0.4 MG/ML 1 ML VIAL IV PRN (14:24)
[2019-09-01] MEDS ORDERED: fentaNYL* 50 MCG/ML 2 ML VIAL (100 MCG VIAL) IV PRN (14:24)
[2019-09-01] MEDS ORDERED: Sugammadex * 200 MG/2 ML VIAL IV PUSH ONE (14:34)
[2019-09-01] MEDS ORDERED: Sugammadex * 500 MG/5 ML VIAL IV PUSH ONE (14:34)
[2019-09-01] MEDS ORDERED: oxyCODONE/Acetamin 5/325 MG* TAB ONE (17:09)
[2019-09-01 18:18] VITALS: BP 115/80
--- NOTE | 2019-09-02 02:57 | OP ---
OPERATIVE REPORT: DATE OF OPERATION: 09/01/19 - VAISHALI DATE OF : 81 SURGEON: Moses Cobian MD PHOTOENGRAVING SUPERVISOR: DINA Garcia ANESTHESIOLOGIST: Dr. Culp. ANESTHESIA: General. PRE-OPERATIVE DIAGNOSES: 1. Right thumb symptomatic metacarpophalangeal joint fusion hardware. 2. 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 3. Right thumb carpometacarpal joint pain and arthritis. POST-OPERATIVE DIAGNOSES: 1. Right thumb symptomatic hardware at the site of metacarpophalangeal joint fusion. 2. Right thumb carpometacarpal joint arthritis and pain. OPERATIVE PROCEDURE: 1. Removal of hardware, right thumb MCP joint fusion. 2. Right thumb carpometacarpal joint corticosteroid injection. INDICATIONS: Ms. Yanez has a bit of painful MCP joint fusion. The most recent x- rays to me look like the fusion had actually taken on my review of them. We explained that to Ms. Yanez that we have decided to excise the screw to see if can get her out of pain. Additionally, the CMC joint seems like it is bothering her somewhat and so I told her that I would inject with some steroid. She agrees and wishes to proceed with surgery. She understands there is a chance that she may still have pain and that the joint may not be fused; however, I think that it is unlikely. She understands that and wants me to proceed with the surgery. X-rays of the CMC joint showed some mild periarticular cystic formation and early osteophyte formation suggestive of early CMC joint arthritis. ESTIMATED BLOOD LOSS: 2 mL. COMPLICATIONS: None. FINDINGS: It did look like intraoperatively to me that the joint was well fused. DESCRIPTION OF PROCEDURE: Ms. Yanez was seen in the preoperative holding area. The correct side, site, and procedure were identified. We came back to the operative room where anesthesia was induced. The arm was prepped and draped in the usual fashion. Time-out was performed. I went ahead and first performed the injection. I used a 25-gauge needle and I injected 2 mL of 1% of lidocaine and 12 mg of betamethasone into the carpometacarpal joint I then opened up her prior dorsal MCP joint incision. Full-thickness flaps were raised off the extensor tendon paratenon. I utilized the prior tendon split in the tendon to open up the tendon. There were some nylon sutures in place that were easily followed. Once I incised the tendon longitudinally in line with where it had been open before, I retracted that full thickness off the dorsum of the MCP joint fusion. I could see the Acutrak screw. I freed up the bony edges around the Acutrak screw. I placed a guidewire down at the shaft of the screw and then the screw crew truck driver came in and the screw came out uneventfully. I removed any rough bony edges around the area. I then examined the fusion; it looked like solid bone. There was a good bit of bone dorsally that looked solid. I could not get any motion at the fusion site. Overall, it looked well fused. I therefore irrigated out the area. I then closed the extensor tendon split with 3- 0 PDS suture. I removed all the 0 nylon suture. Skin was then closed with nylon suture. 0.25% Marcaine was infiltrated. Soft dressing was applied. She was taken to the recovery room in stable condition. [id number]/[facility] #: [id number] EUGENIO
== END 2019-09-01 18:25 | disposition home or self-care (01) ==
LOC: OREAST 11:40
PROVIDERS: ATTEND Orthopaedic Surgery Hand Surgery
DX: T84.84XA Pain due to internal orthopedic prosthetic devices, implants and grafts, initial encounter (principal); Y83.1 Surgical operation with implant of artificial internal device as the cause of abnormal reaction of the patient, or of later complication, without mention of misadventure at the time of the procedure; M19.041 Primary osteoarthritis, right hand; J21.9 Acute bronchiolitis, unspecified; F41.8 Other specified anxiety disorders; F17.210 Nicotine dependence, cigarettes, uncomplicated
CPT/HCPCS: 81025; 88300; A9270-GY; C1776; J0690; J0702; J1100; J1885; J2250; J2405; J2704; J2765; J3010; J3490

== ENCOUNTER 2023-02-16 22:26 | Inpatient (IN) ==
[2023-02-17] MEDS ORDERED: Vancomycin 1,000 MG in NS 0.9% 250 ml 250 ML IVPB ONE (01:37)
[2023-02-17] MEDS ORDERED: NS 0.9% 1000 ml BAG 1,000 ML IV ONE (01:41)
[2023-02-17 03:38] LABS: ABS Eosinophils 0.1 10^3/uL (0.0-0.5); ABS Lymphocytes 2.2 10^3/uL (1.0-4.8); ABS Monocytes 0.4 10^3/uL (0.0-0.9); ABS Neutrophils 4.6 10^3/uL (1.5-7.6); ABS Nucleated RBC 0.01 10^3/ul; Hematocrit 30.3 % (35-45); Hemoglobin 10.8 g/dL (11.5-14.3); Lymphocyte % 29.5 %; Mean Corpuscular Hemoglobin 29.4 pg (27-33); Mean Corpuscular Hgb Conc 35.7 g/dL (31-36); Mean Corpuscular Volume 82.2 fL (80-97); Mean Platelet Volume 7.1 fL (7.5-11.2); Nucleated Red Blood Cells % 0.1 /100 WBC (0.0-0.4); Platelet Count 290 10^3/uL (150-450); Red Blood Count 3.68 10^6/uL (3.63-4.92); Red Cell Distribution Width 13.3 % (12-17); White Blood Count 7.4 10^3/uL (3.8-11.8)
[2023-02-17 03:56] LABS: ALT 17 U/L (7-52); Albumin 3.4 g/dL (3.2-5.2); Albumin/Globulin Ratio 1.3 (1-3); Alkaline Phosphatase 53 U/L (35-149); Blood Urea Nitrogen 17 mg/dL (6-24); C Reactive Protein 56.25 mg/L (<8.01); CO2 Carbon Dioxide 27 mmol/L (22-32); Calcium 8.5 mg/dL (8.6-10.3); Chloride 100 mmol/L (101-111); Creatinine, Serum 0.47 mg/dL (0.51-0.95); Globulin 2.7 g/dL (2-4); Glucose 111 mg/dL (70-100); Sodium 136 mmol/L (135-145); Total Protein 6.1 g/dL (6.4-8.9); eGFR CKD-EPI 124.1 (>60)
[2023-02-17 03:58] LABS: Anion Gap 9 mmol/L (2-16)
[2023-02-17 04:01] LABS: HCG Pregnancy < 0.60 mIU/mL
[2023-02-17] MEDS ORDERED: Iohexol 300 (CONTRAST) 10 ML SDV IV ONE (05:51)
[2023-02-17] MEDS ORDERED: Ondansetron 4 mg VIAL 2 MG/ML 2 ml VIAL IV PRN (09:11)
[2023-02-17] MEDS ORDERED: Acetaminophen IV 1 GM/100ML 1,000 MG/100 ML BAG IV PRN (09:11)
[2023-02-17] MEDS ORDERED: Piperacillin/Tazobac 3.375 BAG 3.375 GM/100 ML BAG IV ONE ×2 (09:34→09:43)
[2023-02-17] MEDS ORDERED: Vancomycin per Pharmacy 1 EA NOTE FOLLOW UP SCH (10:00)
[2023-02-17] MEDS ORDERED: Zosyn per Pharmacy NOTE FOLLOW UP SCH (10:00)
[2023-02-17] MEDS: NS 0.9% 1000 ml BAG 1,000 ML IV SCH ×2 (10:08→23:00)
[2023-02-17] MEDS ORDERED: Lactated Ringers 1000 ml BAG 1,000 ML IV ONE (10:35)
[2023-02-17 10:40] LABS: Potassium Redraw 3.8 mmol/L (3.5-5.0)
[2023-02-17] MEDS: Vancomycin 1000 MG in NS 0.9% 250 ML IVPB SCH ×2 (12:37→20:04)
[2023-02-17] MEDS ORDERED: Buffered Lidocaine 1% SYRIN 1 ml INTRADERM ONE (13:31)
[2023-02-17] MEDS ORDERED: Famotidine IV 10 MG/ML 2 ml VIAL (20 mg) IV ONE (13:31)
[2023-02-17] MEDS ORDERED: Famotidine IV 10 MG/ML 2 ml VIAL (20 mg) ONE (13:34)
[2023-02-17] MEDS ORDERED: Lactated Ringers 1000 ml BAG 1,000 ML IV SCH (14:00)
[2023-02-17] MEDS ORDERED: ZOSYN 3.375 GM Q8H per EXTENDED INFUSION IV SCH (14:00)
[2023-02-17] MEDS ORDERED: Lidocaine 1% w EPI 1:100,000 MDV 20 ML VIAL ONE (14:19)
[2023-02-17] MEDS ORDERED: fentaNYL 100 mcg/2 ml 50 MCG/ML VIAL IV PRN (14:27)
[2023-02-17] MEDS ORDERED: Naloxone 0.4 mg VIAL 0.4 mg/ml 1 ml VIAL IV PRN (14:27)
[2023-02-17] MEDS ORDERED: fentaNYL 250 mcg/5 ml 50 MCG/ML 5 ml VIAL (250 MCG) ONE (14:38)
[2023-02-17] MEDS ORDERED: Propofol 10 MG/ML 20 ML BTL ONE ×2 (14:39→15:01)
[2023-02-17] MEDS ORDERED: Lidocaine 2% PF 5 ML VIAL ONE (14:39)
[2023-02-17] MEDS ORDERED: Dexamethasone IV 4 MG/ML VIAL 1 ml VIAL ONE (14:57)
[2023-02-17] MEDS ORDERED: Acetaminophen IV 1 GM/100ML 1,000 MG/100 ML BAG IV ONE (15:04)
[2023-02-17] MEDS ORDERED: Tetan/Diph/Pertus SYR(Tdap) 0.5 ML SYR(BOOSTRIX) use SYR contains LATEX IM ONE (15:28)
[2023-02-17] MEDS ORDERED: cefTRIAXone 1 gm/50 mL D5W 1 GM/50 ML BAG IV SCH ×2 (15:30→22:00)
[2023-02-17] MEDS ORDERED: HYDROmorphone 1 MG/1 ML SYRINGE ONE (16:16)
[2023-02-17] MEDS: HYDROmorphone 1 MG/1 ML SYRINGE IV PRN ×3 (16:17→16:53)
[2023-02-17 21:30] LABS: HIV 4th Generation Nonreactive (Nonreactive)
[2023-02-17 22:08] LABS: Hepatitis C Antibody Reactive (Negative)
[2023-02-18] MEDS: Vancomycin 1000 MG in NS 0.9% 250 ML IVPB SCH ×4 (03:38→23:17)
[2023-02-18 07:06] LABS: Hematocrit 29.8 % (35-45); Hemoglobin 10.4 g/dL (11.5-14.3); Mean Corpuscular Hemoglobin 29.2 pg (27-33); Mean Corpuscular Hgb Conc 35.1 g/dL (31-36); Mean Corpuscular Volume 83.1 fL (80-97); Mean Platelet Volume 6.6 fL (7.5-11.2); Platelet Count 264 10^3/uL (150-450); Red Blood Count 3.58 10^6/uL (3.63-4.92); Red Cell Distribution Width 13.2 % (12-17); White Blood Count 5.4 10^3/uL (3.8-11.8)
[2023-02-18 07:28] LABS: Calcium 8.2 mg/dL (8.6-10.3); Creatinine, Serum 0.45 mg/dL (0.51-0.95); Magnesium 1.8 mg/dL (1.9-2.7); eGFR CKD-EPI 125.4 (>60)
[2023-02-18] MEDS ORDERED: Magnesium Sulfate 2 gm BAG 2 GM/50 ML BAG IVPB ONE (07:34)
[2023-02-18] MEDS ORDERED: HYDROmorphone 1 MG/1 ML SYRINGE IV PRN (08:34)
[2023-02-18] MEDS ORDERED: Naloxone Nasal Spray 4 MG/0.1 ML NASAL.SPR INTRANASAL PRN (08:40)
[2023-02-18] MEDS: HYDROmorphone 0.5 MG/0.5 ML SYRINGE IV SLOW PU PRN ×2 (09:28→13:29)
[2023-02-18] MEDS ORDERED: Pentafluoroprop/Tetrafluoro 1 SPRAY TOP.SPRAY TOPICAL ONE (09:52)
[2023-02-18] MEDS: COWS Protocol Daily Order Reminder FOLLOW UP SCH (10:00)
[2023-02-18] MEDS ORDERED: Vancomycin Trough Check NOTE FOLLOW UP ONE (11:00)
[2023-02-18] MEDS ORDERED: HYDROmorphone 1 MG/1 ML SYRINGE IV SLOW PU PRN (21:00)
[2023-02-19] MEDS: Vancomycin 1000 MG in NS 0.9% 250 ML IVPB SCH (05:44)
[2023-02-19 06:54] LABS: Calcium 8.4 mg/dL (8.6-10.3); Magnesium 1.8 mg/dL (1.9-2.7)
[2023-02-19 07:00] LABS: Creatinine, Serum 0.46 mg/dL (0.51-0.95); eGFR CKD-EPI 124.8 (>60)
[2023-02-19] MEDS ORDERED: Magnesium Sulfate 2 gm BAG 2 GM/50 ML BAG IVPB ONE (07:01)
[2023-02-19 07:07] LABS: ABS Eosinophils 0.3 10^3/uL (0.0-0.5); ABS Lymphocytes 2.5 10^3/uL (1.0-4.8); ABS Monocytes 0.3 10^3/uL (0.0-0.9); ABS Neutrophils 3.3 10^3/uL (1.5-7.6); Eosinophil % 4.4 %; Hematocrit 32.4 % (35-45); Hemoglobin 11.3 g/dL (11.5-14.3); Lymphocyte % 39.1 %; Mean Corpuscular Hemoglobin 29.3 pg (27-33); Mean Corpuscular Hgb Conc 34.9 g/dL (31-36); Mean Corpuscular Volume 83.8 fL (80-97); Mean Platelet Volume 7.2 fL (7.5-11.2); Platelet Count 274 10^3/uL (150-450); Red Blood Count 3.86 10^6/uL (3.63-4.92); Red Cell Distribution Width 13.4 % (12-17); White Blood Count 6.5 10^3/uL (3.8-11.8)
[2023-02-19] MEDS ORDERED: Ondansetron ODT 4 mg TAB 4 MG TAB PO PRN (08:56)
[2023-02-19] MEDS ORDERED: Ketorolac 10 mg TAB (NF) PO PRN (08:57)
[2023-02-19] MEDS ORDERED: Sulfamethox/Trimethoprim DS TAB 800/160 mg PO SCH (09:00)
[2023-02-19 10:50] VITALS: BP 110/65
[2023-02-19] MEDS: COWS Protocol Daily Order Reminder FOLLOW UP SCH (13:01)
== END 2023-02-19 14:00 | disposition home or self-care (01) | DRG 603 ==
LOC: ED 22:26 → EDHOLD 02-17 09:35 → SUATTDRO 02-17 09:35 → EDHOLD 02-17 12:37 → SSU 02-17 17:39
PROVIDERS: ADMIT Internal Medicine; ATTEND Internal Medicine